=== PATIENT | female | born 1985 | race Hispanic/Latino ===

== ENCOUNTER 2023-10-25 13:27 | Observation (INO) | payer OTHER ==
[~2023-10-25] VITALS: Ht 152.4 cm; Wt 145.1 kg
[2023-10-25 14:38] LABS: BASOPHILS % 0.1 % (0.0-1.0); EOSINOPHILS # (AUTO) 0.1 (0.0-0.4); EOSINOPHILS % 0.6 % (0.0-6.0); LYMPHOCYTES # (AUTO) 1.9 (1.0-3.2); LYMPHOCYTES % 24.4 % (18.0-39.1); MEAN CORPUSCULAR HEMOGLOBIN 17.4 pg (28-32); MEAN CORPUSCULAR HGB CONC 25.2 g/dL (31-35); MONOCYTES # (AUTO) 0.4 (0.2-0.8); MONOCYTES % 5.3 % (4.4-11.3); NEUTROPHILS # (AUTO) 5.3 (2.1-6.9); NEUTROPHILS % 68.3 % (38.7-80.0); PLATELET COUNT 343 x10e3/uL (140-360); RED BLOOD COUNT 3.16 x10e6/uL (3.6-5.1); RED CELL DISTRIBUTION WIDTH 18.2 % (11.7-14.4); WHITE BLOOD COUNT 7.76 x10e3/uL (4.8-10.8)
[2023-10-25 14:41] LABS: HEMATOCRIT 21.8 % (34.2-44.1); HEMOGLOBIN 5.5 g/dL (12.0-16.0)
[2023-10-25 14:47] LABS: ANION GAP 13.3 mmol/L (8-16); CALCIUM 8.8 mg/dL (8.4-10.2); CREATININE, SERUM 0.92 mg/dL (0.57-1.11); POTASSIUM 4.3 mmol/L (3.5-5.1)
[2023-10-25 16:19] VITALS: PULSE 113; RESP 19; O2SAT 100
[2023-10-25 16:34] VITALS: BP 134/76; PULSE 119; RESP 21; TEMP 98.1; O2SAT 100
[2023-10-25 18:18] VITALS: BP 134/76; PULSE 100; RESP 18; TEMP 98.1; O2SAT 100
[2023-10-25] MEDS ORDERED: OLMESARTAN-HCT1 EAC2 PO (18:31)
[2023-10-25] MEDS ORDERED: ATORVASTATIN CA20 MG PO (18:31)
[2023-10-25] MEDS ORDERED: METFORMIN HCL850 MG PO (18:31)
[2023-10-25 19:45] VITALS: PULSE 108; RESP 20; O2SAT 99
[2023-10-25 20:37] VITALS: BP 122/64; PULSE 111; RESP 18; TEMP 98.4; O2SAT 99
[2023-10-25 21:00] VITALS: BP 122/64; PULSE 111; RESP 18; TEMP 98.4; O2SAT 99
[2023-10-26] MEDS: SODIUM CHLORIDE 0.9% 250ML 250 ML ONE (07:04)
[2023-10-26] MEDS: SODIUM CHLORIDE 0.9% 250ML 250 ML IV ONE ×3 (07:04→11:15)
[2023-10-26 07:07] LABS: BASOPHILS % 0.3 % (0.0-1.0); EOSINOPHILS % 0.4 % (0.0-6.0); HEMATOCRIT 26.4 % (34.2-44.1); HEMOGLOBIN 7.2 g/dL (12.0-16.0); LYMPHOCYTES # (AUTO) 1.6 (1.0-3.2); LYMPHOCYTES % 21.2 % (18.0-39.1); MEAN CORPUSCULAR HEMOGLOBIN 19.8 pg (28-32); MEAN CORPUSCULAR HGB CONC 27.3 g/dL (31-35); MEAN CORPUSCULAR VOLUME 72.7 fL (81-99); MONOCYTES # (AUTO) 0.4 (0.2-0.8); MONOCYTES % 5.5 % (4.4-11.3); NEUTROPHILS # (AUTO) 5.4 (2.1-6.9); NEUTROPHILS % 71.8 % (38.7-80.0); PLATELET COUNT 328 x10e3/uL (140-360); RED BLOOD COUNT 3.63 x10e6/uL (3.6-5.1); RED CELL DISTRIBUTION WIDTH 22.1 % (11.7-14.4); WHITE BLOOD COUNT 7.58 x10e3/uL (4.8-10.8)
[2023-10-26 07:42] LABS: ANION GAP 13.2 mmol/L (8-16); CALCIUM 9.1 mg/dL (8.4-10.2); CREATININE, SERUM 0.89 mg/dL (0.57-1.11); POTASSIUM 4.2 mmol/L (3.5-5.1)
[2023-10-26 08:00] VITALS: BP 114/76; PULSE 98; RESP 21; TEMP 98.1; O2SAT 100
[2023-10-26 10:30] VITALS: PULSE 105; RESP 17; O2SAT 98
[2023-10-26 10:50] LABS: HYPOCHROMASIA MODERATE; MICROCYTOSIS MODERATE; OVALOCYTES FEW; PLATELET ESTIMATE ADEQUATE; POLYCHROMASIA FEW
[2023-10-26 10:51] LABS: ANISOCYTOSIS MODERATE; RBC MORPHOLOGY COMMENT ABNORMAL
[2023-10-26 15:49] VITALS: BP 129/74; PULSE 104; RESP 21; TEMP 98.5; O2SAT 98
[2023-10-26 20:00] VITALS: BP 96/62; PULSE 86; RESP 18; TEMP 97.3
[2023-10-26 21:00] VITALS: BP 96/62; PULSE 86; RESP 18; TEMP 97.3; O2SAT 98
[2023-10-27] VITALS: BP 95/54; PULSE 93; RESP 18; TEMP 98.3; O2SAT 100
[2023-10-27 04:00] VITALS: BP 100/55; PULSE 96; RESP 18; TEMP 98.6; O2SAT 98
[2023-10-27 05:56] LABS: BASOPHILS % 0.1 % (0.0-1.0); EOSINOPHILS # (AUTO) 0.1 (0.0-0.4); HEMATOCRIT 28.3 % (34.2-44.1); HEMOGLOBIN 7.8 g/dL (12.0-16.0); LYMPHOCYTES # (AUTO) 2.1 (1.0-3.2); LYMPHOCYTES % 27.5 % (18.0-39.1); MEAN CORPUSCULAR HEMOGLOBIN 20.5 pg (28-32); MEAN CORPUSCULAR HGB CONC 27.6 g/dL (31-35); MEAN CORPUSCULAR VOLUME 74.5 fL (81-99); MONOCYTES # (AUTO) 0.5 (0.2-0.8); MONOCYTES % 6.9 % (4.4-11.3); NEUTROPHILS # (AUTO) 4.9 (2.1-6.9); NEUTROPHILS % 63.7 % (38.7-80.0); PLATELET COUNT 303 x10e3/uL (140-360); RED CELL DISTRIBUTION WIDTH 23.7 % (11.7-14.4); WHITE BLOOD COUNT 7.71 x10e3/uL (4.8-10.8)
[2023-10-27 07:25] VITALS: BP 121/76; PULSE 93; RESP 20; TEMP 98.6; O2SAT 100
[2023-10-27 08:25] VITALS: BP 121/76; PULSE 93; RESP 20; TEMP 98.6; O2SAT 100
[2023-10-27] MEDS ORDERED: FEROSUL325 MG PO (10:44)
[2023-10-27 10:58] VITALS: BP 128/75; PULSE 106; RESP 19; TEMP 98.1; O2SAT 97
== END 2023-10-27 12:58 | disposition home or self-care (01) ==
LOC: ER 14:03 → ERHOLD 15:05 → MED/SURG 16:34
PROVIDERS: ADMIT Internal Medicine; ATTEND Internal Medicine
DX: N92.0 Excessive and frequent menstruation with regular cycle (principal); D62 Acute posthemorrhagic anemia; E11.65 Type 2 diabetes mellitus with hyperglycemia; I10 Essential (primary) hypertension; E66.9 Obesity, unspecified; Z11.52 Encounter for screening for COVID-19; Z79.84 Long term (current) use of oral hypoglycemic drugs; Z79.899 Other long term (current) drug therapy; Z68.44 Body mass index [BMI] 60.0-69.9, adult; Z83.3 Family history of diabetes mellitus; Z82.49 Family history of ischemic heart disease and other diseases of the circulatory system
CPT/HCPCS: 36415 ×3; 36430 ×2; 76856; 80048 ×2; 82948 ×2; 84702; 85025 ×3; 86850; 86900; 86920; 94799 ×2; 99284; G0378 ×3; J7050; P9016 ×2; U0002